=== PATIENT | male | born 1975 | race Caucasian/White ===

== ENCOUNTER 2016-07-08 09:35 | Emergency (ER) | payer MEDICAID ==
[~2016-07-08] VITALS: Ht 170.2 cm; Wt 99.1 kg
[2016-07-08 09:38] VITALS: BP 121/76
== END 2016-07-08 10:10 | disposition home or self-care (01) ==
LOC: ED 10:07
DX: S90.822A Blister (nonthermal), left foot, initial encounter (principal); X58.XXXA Exposure to other specified factors, initial encounter; Y93.89 Activity, other specified; Y92.89 Other specified places as the place of occurrence of the external cause; Y99.8 Other external cause status
CPT/HCPCS: 99283

== ENCOUNTER 2017-01-13 14:47 | Emergency (ER) | payer MEDICAID ==
[~2017-01-13] VITALS: Ht 172.7 cm; Wt 95.6 kg
[2017-01-13] MEDS ORDERED: KETOROLAC 30 MG/1 ML IM ONE (15:30)
[2017-01-13] MEDS ORDERED: KETOROLAC 30 MG/1 ML ONE (15:51)
[2017-01-13] MEDS ORDERED: CEFTRIAXONE 250 MG IM ONE (16:30)
[2017-01-13] MEDS ORDERED: CEFTRIAXONE 250 MG ONE (16:33)
[2017-01-13 16:49] VITALS: BP 123/84
== END 2017-01-13 16:51 | disposition home or self-care (01) ==
LOC: ED 15:14
DX: N30.00 Acute cystitis without hematuria (principal); N34.1 Nonspecific urethritis; F17.200 Nicotine dependence, unspecified, uncomplicated
CPT/HCPCS: 81001; 87086; 87491; 87591; 96372; 99284; J0696

== ENCOUNTER 2017-01-27 06:53 | Emergency (ER) | payer MEDICAID ==
[~2017-01-27] VITALS: Ht 172.7 cm; Wt 97.1 kg
[2017-01-27] MEDS ORDERED: SODIUM CHLORIDE 0.9% 1,000 ML IV ONE (07:21)
[2017-01-27] MEDS ORDERED: SODIUM CHLORIDE 0.9% 1,000ML IVBOLUS ONE (07:30)
[2017-01-27 07:47] LABS: RAPID INFLUENZA A Negative (Negative); RAPID INFLUENZA B Negative (Negative)
[2017-01-27 08:16] LABS: HEMATOCRIT 44.1 % (39.2-51.8); HEMOGLOBIN 14.9 g/dL (13.7-18.0); WHITE BLOOD COUNT 14.1 x10^3/uL (3.4-10)
[2017-01-27 08:26] LABS: BLOOD UREA NITROGEN 11 mg/dL (7-18)
[2017-01-27 08:59] VITALS: BP 111/77
== END 2017-01-27 09:40 | disposition home or self-care (01) ==
LOC: ED 08:29
DX: J20.9 Acute bronchitis, unspecified (principal)
CPT/HCPCS: 36415; 71020; 80048; 81003; 82040; 85025; 87400; 96360; 99285; J7030

== ENCOUNTER 2017-01-30 06:23 | Emergency (ER) | payer MEDICAID ==
[~2017-01-30] VITALS: Ht 172.7 cm; Wt 97.0 kg
[2017-01-30] MEDS ORDERED: SODIUM CHLORIDE 0.9% 1,000 ML IV ONE (07:10)
[2017-01-30] MEDS ORDERED: SODIUM CHLORIDE 0.9% 1,000ML IVBOLUS ONE (07:30)
[2017-01-30] MEDS ORDERED: FAMOTIDINE 20 MG/2 ML IVP ONE (07:30)
[2017-01-30] MEDS ORDERED: ONDANSETRON 2MG/ML, 2ML IVPush ONE (07:30)
[2017-01-30] MEDS ORDERED: ONDANSETRON 2MG/ML, 2ML ONE (07:35)
[2017-01-30] MEDS ORDERED: FAMOTIDINE 20 MG/2 ML ONE (07:35)
[2017-01-30 07:46] VITALS: BP 119/75
[2017-01-30 07:57] LABS: HEMATOCRIT 49.8 % (39.2-51.8); HEMOGLOBIN 16.7 g/dL (13.7-18.0); WHITE BLOOD COUNT 7.5 x10^3/uL (3.4-10)
[2017-01-30 08:06] LABS: BLOOD UREA NITROGEN 18 mg/dL (7-18)
[2017-01-30 08:09] LABS: ASPARTATE AMINO TRANSFERASE 13 U/L (15-37)
[2017-01-30] MEDS ORDERED: ACETAMINOPHEN 325 MG TABLET ONE (09:35)
[2017-01-30] MEDS ORDERED: ACETAMINOPHEN 325 MG TABLET PO ONE (10:00)
== END 2017-01-30 09:51 | disposition home or self-care (01) ==
LOC: ED 08:51
DX: R11.2 Nausea with vomiting, unspecified (principal); R10.13 Epigastric pain
CPT/HCPCS: 36415; 80053; 83690; 85025; 96361; 96374; 96375; 99285; J2405; J7030; S0028

== ENCOUNTER 2017-05-05 08:54 | Emergency (ER) | payer MEDICAID ==
[~2017-05-05] VITALS: Ht 172.7 cm; Wt 99.1 kg
[2017-05-05 08:59] VITALS: BP 112/73
== END 2017-05-05 09:39 | disposition left against medical advice (07) ==
LOC: ED 09:33
DX: Z53.21 Procedure and treatment not carried out due to patient leaving prior to being seen by health care provider (principal)

== ENCOUNTER 2017-05-08 07:34 | Emergency (ER) | payer MEDICAID ==
[~2017-05-08] VITALS: Ht 172.7 cm; Wt 99.3 kg
[2017-05-08 08:45] VITALS: BP 125/74
== END 2017-05-08 08:47 | disposition home or self-care (01) ==
LOC: ED 08:20
DX: B30.1 Conjunctivitis due to adenovirus (principal); J06.9 Acute upper respiratory infection, unspecified; Z87.891 Personal history of nicotine dependence
CPT/HCPCS: 99281